=== PATIENT | female | born 1935 | race Caucasian/White ===

== ENCOUNTER → 2016-07-15 | Outpatient (CLI) | payer MEDICARE, BC ==
[~2016-07-15] MED LIST: EXFO10TA2 PO; LANTUSP SQ; LEVO.1 PO; METF500 PO; NOVORP2 SQ
[2016-07-15 13:54] LABS: AST (GOT) 26 U/L (15-37); BICARBONATE 27.4 MEQ/L (21.0-32.0); BLOOD UREA NITROGEN 12 MG/DL (7-18); CHLORIDE 104 MEQ/L (98-107); GLOMERULAR FILTRATION RATE 69 ML/MIN (>89); GLUCOSE,FASTING 75 MG/DL (74-99); POTASSIUM 4.1 MEQ/L (3.5-5.1); SODIUM (NA) 138 MEQ/L (136-145)
[2016-07-15 13:55] LABS: ANION GAP 7 MEQ/L (5-15)
[2016-07-15 14:04] LABS: HDL CHOLESTEROL 50.1 MG/DL (40.0-60.0)
[2016-07-15 14:06] LABS: ALKALINE PHOSPHATASE 58 U/L (45-117); ALT (GPT) 25 U/L (10-53); FREE T4 1.15 NG/DL (0.76-1.46); TOTAL BILIRUBIN ADULT 0.3 MG/DL (0.2-1.0)
[2016-07-15 16:15] LABS: HEMOGLOBIN A1a 0.9 %; HEMOGLOBIN Ao 84.7 %; HEMOGLOBIN LA1C 1.6 %; HEMOGLOBIN P3 3.8 %
== END ==
LOC: PLAB 08:32
PROVIDERS: ATTEND Internal Medicine Endocrinology, Diabetes & Metabolism
DX: E78.5 Hyperlipidemia, unspecified (principal); E11.65 Type 2 diabetes mellitus with hyperglycemia; I10 Essential (primary) hypertension; E03.9 Hypothyroidism, unspecified; E78.2 Mixed hyperlipidemia
CPT/HCPCS: 36415; 80053; 80061; 83036; 84439; 84443

== ENCOUNTER → 2017-01-11 | Outpatient (CLI) | payer MEDICARE, BC ==
[2017-01-11 13:41] LABS: ANION GAP 12 MEQ/L (5-15); AST (GOT) 22 U/L (15-37); BICARBONATE 22.5 MEQ/L (21.0-32.0); BLOOD UREA NITROGEN 13 MG/DL (7-18); CHLORIDE 99 MEQ/L (98-107); GLOMERULAR FILTRATION RATE 67 ML/MIN (>89); POTASSIUM 4.5 MEQ/L (3.5-5.1); SODIUM (NA) 133 MEQ/L (136-145)
[2017-01-11 13:42] LABS: ALT (GPT) 26 U/L (10-53)
[2017-01-11 13:52] LABS: ALKALINE PHOSPHATASE 56 U/L (45-117); TOTAL BILIRUBIN ADULT 0.5 MG/DL (0.2-1.0)
[2017-01-11 16:58] LABS: HEMOGLOBIN A1a 0.9 %; HEMOGLOBIN A1b 2.3 %; HEMOGLOBIN Ao 82.3 %; HEMOGLOBIN LA1C 1.9 %; HEMOGLOBIN P3 4.2 %
== END ==
LOC: PLAB 08:26
PROVIDERS: ATTEND Internal Medicine Endocrinology, Diabetes & Metabolism
DX: E03.9 Hypothyroidism, unspecified (principal); E11.65 Type 2 diabetes mellitus with hyperglycemia; I10 Essential (primary) hypertension
CPT/HCPCS: 36415; 80053; 83036; 84439; 84443

== ENCOUNTER → 2017-03-01 | Outpatient (CLI) | payer MEDICARE, BC ==
[2017-03-01 10:37] LABS: APTT (PATIENT) 27.9 SEC (24.3-30.1); PROTHROMBIN TIME - PATIENT 10.8 SEC (9.8-11.6)
[2017-03-01 13:00] LABS: AUTOMATED NEUTROPHIL # 5.1 TH/MM3 (1.8-7.7); BASOPHIL % 0.1 % (0.0-2.0); EOSINOPHIL # 0.1 TH/MM3 (0-0.4); HEMATOCRIT 36.5 % (35.0-46.0); HEMO FLAGS DIFF FINAL; LYMPH % 19.3 % (9.0-44.0); LYMPHOCYTE # 1.3 TH/MM3 (1.0-4.8); MEAN CELL VOLUME 86.9 FL (80.0-100.0); MEAN CORPUSCULAR HEMOGLOBIN 29.5 PG (27.0-34.0); MEAN CORPUSCULAR HGB CONC 33.9 % (32.0-36.0); MONO % 6.6 % (0.0-8.0); PLATELET COUNT 223 TH/MM3 (150-450); RED CELL DISTRIBUTION WIDTH 13.3 % (11.6-17.2)
[2017-03-01 13:21] LABS: ANION GAP 8 MEQ/L (5-15); AST (GOT) 18 U/L (15-37); BICARBONATE 25.1 MEQ/L (21.0-32.0); BLOOD UREA NITROGEN 11 MG/DL (7-18); CHLORIDE 99 MEQ/L (98-107); GLOMERULAR FILTRATION RATE 62 ML/MIN (>89); POTASSIUM 4.2 MEQ/L (3.5-5.1); SODIUM (NA) 132 MEQ/L (136-145)
[2017-03-01 13:23] LABS: ALT (GPT) 23 U/L (10-53)
[2017-03-01 13:25] LABS: ALKALINE PHOSPHATASE 63 U/L (45-117); TOTAL BILIRUBIN ADULT 0.5 MG/DL (0.2-1.0)
== END ==
LOC: PLAB 09:30
PROVIDERS: ATTEND Family Medicine
DX: I10 Essential (primary) hypertension (principal); E11.9 Type 2 diabetes mellitus without complications; E78.5 Hyperlipidemia, unspecified
CPT/HCPCS: 36415; 80053; 85025; 85610; 85730

== ENCOUNTER → 2017-03-22 | Day surgery (SDC) | payer MEDICARE, BC ==
[~2017-03-22] MED LIST changes: +BUPIVACAINE HCL PF 0.25% 30 ML VIAL ONE; +ONDANSETRON HCL 4 MG/2 ML VIAL IV PUSH ONE; +PROPOFOL 100 MG/10 ML INJ IV ONE; +ceFAZolin 2 GM PREMIX 50 ML ONE
--- NOTE | 2017-03-22 14:01 | MP ---
cc: LITTLE CRUZ DP DATE OF SURGERY: 03/22/2017 PREOPERATIVE DIAGNOSIS: Right foot prominent /1 metatarsal exostosis with ulcer. POSTOPERATIVE DIAGNOSIS Right foot prominent /1 metatarsal exostosis with ulcer. PROCEDURES PERFORMED Right first metatarsal head resection with ulcer ellipse and skin plasty greater than 2 cm. SPECIMEN Bone for pathology micro tissue swab. ESTIMATED BLOOD LOSS Less than 30 mls COMPLICATIONS None ANESTHESIA General with local 15 cc of 0.25% Marcaine plain PLAN OF ACTIVITY PACU then DC home once stable per same-day surgery criteria TOURNIQUET TIME Approximately 20 minutes at a setting of 250 mmHg at the patient's right ankle. 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 One was IPJ fusion the screw had to be removed. 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 We devised a plan to move forward with removal of bony prominence and ulcer ellipse of <<1:02>> the patient is educated on possible delayed healing, need for surgery at a later date, possible wound grafting and possible unstable hallux due to removing part of the joint. No guarantees were given or implied regarding outcome. PROCEDURE IN DETAIL Under mild sedation the patient is brought to the operating room, placed the operative the supine position following the induction of general anesthesia, local anesthesia was obtained about the right first ray, utilizing standard block fashion. The right foot was then scrubbed, prepped and draped in the usual aseptic fashion. The foot was elevated, exsanguinated previously placed mid calf tourniquet is inflated a 215 mmHg incision was made over the dorsal aspect of the first metacarpal phalangeal joint. Sharp and blunt dissection was carried down through scar tissue. Subperiosteal dissection took place. The first metatarsal head was identified and was partially resected. This revealed a soft appearance now at the forefoot where the ulcer was present. An elliptical incision took place full-thickness excising out the ulcer that was sent for microbial analysis. Utilizing O Prolene the ulcer of the plantar aspect of the foot was then coapted. The wound was flushed copious amounts of normal saline dorsally, periosteal closure took place utilizing Vicryl. Skin was closed utilizing nylon. Upon releasing the tourniquet there is a prompt hyperemic response to all digits without any delayed capillary fill time a bulky bandage placed. The patient transferred from operating room to Post-Anesthesia Care Unit with all vital signs stable. She is heel transfer weight bear. She will follow up within 3-5 days. SOCORRO Grover /1:32 PM /1:47 PM
== END | disposition home or self-care (01) ==
LOC: ESDC 10:41
PROVIDERS: ATTEND Podiatrist Foot & Ankle Surgery
DX: M25.774 Osteophyte, right foot (principal); L97.519 Non-pressure chronic ulcer of other part of right foot with unspecified severity; B95.7 Other staphylococcus as the cause of diseases classified elsewhere; B95.62 Methicillin resistant Staphylococcus aureus infection as the cause of diseases classified elsewhere; E11.9 Type 2 diabetes mellitus without complications; Z79.4 Long term (current) use of insulin
CPT/HCPCS: 01480; 28111; 82948; 86403; 87015; 87070; 87116; 87185; 87186; 87205; 87206; 88305; 88311; J0690; J2405; J3010; 88304

== ENCOUNTER → 2017-04-27 | Outpatient (CLI) | payer MEDICARE, BC ==
[~2017-04-27] MED LIST changes: -BUPIVACAINE HCL PF 0.25% 30 ML VIAL ONE; -ONDANSETRON HCL 4 MG/2 ML VIAL IV PUSH ONE; -PROPOFOL 100 MG/10 ML INJ IV ONE; -ceFAZolin 2 GM PREMIX 50 ML ONE
[2017-04-27 13:51] LABS: ANION GAP 7 MEQ/L (5-15); AST (GOT) 23 U/L (15-37); BLOOD UREA NITROGEN 15 MG/DL (7-18); CHLORIDE 103 MEQ/L (98-107); GLOMERULAR FILTRATION RATE 63 ML/MIN (>89); POTASSIUM 4.3 MEQ/L (3.5-5.1); SODIUM (NA) 136 MEQ/L (136-145)
[2017-04-27 13:52] LABS: ALT (GPT) 32 U/L (10-53)
[2017-04-27 14:02] LABS: ALKALINE PHOSPHATASE 69 U/L (45-117); FREE T4 1.29 NG/DL (0.76-1.46); TOTAL BILIRUBIN ADULT 0.6 MG/DL (0.2-1.0)
[2017-04-27 18:09] LABS: HEMOGLOBIN A1a 0.9 %; HEMOGLOBIN A1b 2.3 %; HEMOGLOBIN LA1C 3.1 %; HEMOGLOBIN P3 4.7 %
== END ==
LOC: PLAB 08:41
PROVIDERS: ATTEND Internal Medicine Endocrinology, Diabetes & Metabolism
DX: E11.65 Type 2 diabetes mellitus with hyperglycemia (principal); I10 Essential (primary) hypertension; E03.9 Hypothyroidism, unspecified; E78.2 Mixed hyperlipidemia
CPT/HCPCS: 36415; 80053; 83036; 84439; 84443

== ENCOUNTER → 2017-09-07 | Outpatient (CLI) | payer MEDICARE, BC ==
[2017-09-07 14:21] LABS: ALBUMIN 3.6 GM/DL (3.4-5.0); AST (GOT) 17 U/L (15-37); BICARBONATE 25.3 MEQ/L (21.0-32.0); BLOOD UREA NITROGEN 14 MG/DL (7-18); CALCIUM 8.8 MG/DL (8.5-10.1); CHLORIDE 108 MEQ/L (98-107); CREATININE 0.87 MG/DL (0.50-1.00); GLOMERULAR FILTRATION RATE 62 ML/MIN (>89); GLUCOSE,RANDOM 56 MG/DL (74-106); SODIUM (NA) 141 MEQ/L (136-145)
[2017-09-07 14:32] LABS: ALKALINE PHOSPHATASE 61 U/L (45-117); ALT (GPT) 16 U/L (10-53); FREE T4 1.22 NG/DL (0.76-1.46); TOTAL BILIRUBIN ADULT 0.3 MG/DL (0.2-1.0); TOTAL PROTEIN 7.6 GM/DL (6.4-8.2)
[2017-09-08 15:03] LABS: HEMOGLOBIN A1C 7.3 % (4.3-6.0)
== END ==
LOC: PLAB 10:03
PROVIDERS: ATTEND Internal Medicine Endocrinology, Diabetes & Metabolism
DX: E03.9 Hypothyroidism, unspecified (principal); E11.65 Type 2 diabetes mellitus with hyperglycemia; E78.2 Mixed hyperlipidemia
CPT/HCPCS: 36415; 80053; 83036; 84439; 84443

== ENCOUNTER → 2017-10-11 | Outpatient (CLI) | payer MEDICARE, BC ==
[2017-10-11 19:07] LABS: ALBUMIN 3.8 GM/DL (3.4-5.0); AST (GOT) 23 U/L (15-37); BICARBONATE 25.3 MEQ/L (21.0-32.0); BLOOD UREA NITROGEN 14 MG/DL (7-18); CALCIUM 9.2 MG/DL (8.5-10.1); CHLORIDE 105 MEQ/L (98-107); CREATININE 0.95 MG/DL (0.50-1.00); GLOMERULAR FILTRATION RATE 56 ML/MIN (>89); GLUCOSE,RANDOM 223 MG/DL (74-106); SODIUM (NA) 139 MEQ/L (136-145)
[2017-10-11 19:08] LABS: ALT (GPT) 20 U/L (10-53)
[2017-10-11 19:18] LABS: ALKALINE PHOSPHATASE 64 U/L (45-117); FREE T4 1.44 NG/DL (0.76-1.46); TOTAL BILIRUBIN ADULT 0.4 MG/DL (0.2-1.0); TOTAL PROTEIN 7.8 GM/DL (6.4-8.2)
[2017-10-12 15:48] LABS: HEMOGLOBIN A1C 6.8 % (4.3-6.0)
== END ==
LOC: PLAB 12:29
PROVIDERS: ATTEND Internal Medicine Endocrinology, Diabetes & Metabolism
DX: E11.65 Type 2 diabetes mellitus with hyperglycemia (principal); E03.9 Hypothyroidism, unspecified; E78.2 Mixed hyperlipidemia
CPT/HCPCS: 36415; 80053; 83036; 84439; 84443